=== PATIENT | female | born 1955 | race Caucasian/White ===

== ENCOUNTER 2018-09-15 08:16 | Emergency (ER) | payer OTHER, MEDICAID ==
[~2018-09-15] VITALS: Ht 170.2 cm; Wt 60.3 kg
[2018-09-15 09:20] LABS: BASOPHIL % 0.8 % (0-2); PLATELET COUNT 218 x10^3mcL (130-400)
[2018-09-15 09:22] LABS: CALCIUM 8.6 mg/dL (8.5-10.1); CARBON DIOXIDE 20.1 mmol/L (21-32); CREATININE SERUM 1.7 mg/dL (0.6-1.0)
[2018-09-15 09:33] LABS: BILIRUBIN TOTAL 0.2 mg/dL (0.20-1.00); MAGNESIUM 1.2 mg/dL (1.8-2.4); T4(THYROXINE) 6.4 ug/dL (4.7-13.3); TOTAL PROTEIN, SERUM 6.8 g/dL (6.4-8.2)
[2018-09-15 09:37] LABS: ALBUMIN 2.9 g/dL (3.4-5.0)
[2018-09-15 09:40] VITALS: BP 138/97
[2018-09-15 09:49] LABS: microscopic required? YES; urine erythrocyte 1+ (NEGATIVE)
[2018-09-15 10:00] LABS: AMPHETAMINE QUAL UR NONE DETECTED (See below)
== END 2018-09-15 09:40 | disposition short-term general hospital (02) ==
LOC: ED 08:16
PROVIDERS: Emergency Medicine
DX: I63.9 Cerebral infarction, unspecified (principal); G81.91 Hemiplegia, unspecified affecting right dominant side; E11.9 Type 2 diabetes mellitus without complications; E78.00 Pure hypercholesterolemia, unspecified; I11.0 Hypertensive heart disease with heart failure; I50.9 Heart failure, unspecified; Z95.810 Presence of automatic (implantable) cardiac defibrillator
CPT/HCPCS: 36415; 82962; 83880; Q0092

== ENCOUNTER 2019-04-16 06:08 | Emergency (ER) | payer OTHER, MEDICAID ==
[~2019-04-16] VITALS: Ht 162.6 cm; Wt 61.2 kg
[2019-04-16 06:21] VITALS: Ht 162.6 cm; Wt 61.2 kg
[2019-04-16 07:30] LABS: BASOPHIL % 0.5 % (0-2); PLATELET COUNT 216 x10^3mcL (130-400); RED CELL DISTRIBUTION WIDTH 13.4 % (11.5-14.5)
[2019-04-16 07:35] LABS: BILIRUBIN TOTAL 0.22 mg/dL (0.20-1.00); CALCIUM 8.2 mg/dL (8.5-10.1); CARBON DIOXIDE 17.6 mmol/L (21-32); CREATININE SERUM 1.9 mg/dL (0.6-1.0); POTASSIUM SERUM 3.5 mmol/L (3.5-5.1); TOTAL PROTEIN, SERUM 7.2 g/dL (6.4-8.2)
[2019-04-16 07:50] LABS: ALBUMIN 3.1 g/dL (3.4-5.0)
[2019-04-16 11:27] VITALS: BP 125/61
== END 2019-04-16 11:27 | disposition home or self-care (01) ==
LOC: ED 06:08
PROVIDERS: Emergency Medicine
DX: E11.649 Type 2 diabetes mellitus with hypoglycemia without coma (principal); I11.0 Hypertensive heart disease with heart failure; I50.9 Heart failure, unspecified
CPT/HCPCS: 82962; J3490

== ENCOUNTER 2019-08-01 18:47 | Inpatient (IN) | payer OTHER ==
[~2019-08-01] VITALS: Ht 167.6 cm; Wt 56.2 kg
[2019-08-01 18:49] VITALS: Ht 167.6 cm; Wt 56.2 kg
--- NOTE | 2019-08-01 19:03 | NUR ---
PT C/P PACEMAKER BEEPING SINCE THURSDAY WITH AN EPISODE OF SOB LAST NIGHT, PT HAD INITIALLY DENIED PAIN BUT THEN STATED I FEEL PAIN IN THE MIDDLE OF MY CHEST. EKG DONE IN TRIAGE, X-RAY ORDERED PER DR RAE. PT TO ED LOBBY TO AWAIT ROOM. FAMILY AT HER SIDE. NO ACUTE DISTRESS NOTED.
--- NOTE | 2019-08-01 19:52 | NUR ---
PT CAME TO ED STS THAT SHE THINKS THERE IS A PROBLEM W/HER PACE MAKER. PT STS SHE THINKS THAT IT IS TELLING HER THAT THE BATTERY IS LOW. PT STS THE PACE MAKER IS BEEPING. PT STS SHE MOVED HERE A YEAR AGO, AND SHE IS HAVING TROUBLE W/HER INSURANCE. PT STS THE PACE MAKER HAS "BEEPED" SINCE THURSDAY. PT STS SHE HAS NEVER HEARD THIS BEFORE. NO S/S OF DISTRESS. RESP E/U. PT STS SHE IS CURRENTLY IN NO PAIN. AWAITING MSE. WILL CONTINUE TO MONITOR.
[2019-08-01 20:50] LABS: BASOPHIL % 0.8 % (0-2); PLATELET COUNT 156 x10^3mcL (130-400); RED CELL DISTRIBUTION WIDTH 13.8 % (11.5-14.5)
[2019-08-01 20:58] LABS: CALCIUM 6.8 mg/dL (8.5-10.1); CARBON DIOXIDE 16.3 mmol/L (21-32); CREATININE SERUM 3.3 mg/dL (0.6-1.0); POTASSIUM SERUM 3.5 mmol/L (3.5-5.1)
[2019-08-01 21:03] LABS: BILIRUBIN TOTAL 0.09 mg/dL (0.20-1.00); TOTAL PROTEIN, SERUM 6.3 g/dL (6.4-8.2)
[2019-08-01 21:04] LABS: ALBUMIN 2.5 g/dL (3.4-5.0)
--- NOTE | 2019-08-01 21:18 | NUR ---
PT LAYING ON GURNEY IN POSITION OF COMFORT. WATCHING TV. NO S/S OF DISTRESS RESP E/U. WILL CONTINUE TO MONITOR.
--- NOTE | 2019-08-01 21:32 | NUR ---
DR. ONEILL AT BEDSIDE DISCUSSING POC
--- NOTE | 2019-08-01 22:28 | NUR ---
ATTEMPTED TO OBTAIN MEDICATION LIST. PT STS THAT HER DAUGHTER HAS THE LIST. WILL PROVIDE TO UP STAIRS NURSE WHEN ADMITTED.
--- NOTE | 2019-08-01 23:08 | NUR ---
REPORT GIVEN TO ALEX CAAL TO ASSUME CARE OF PT
--- NOTE | 2019-08-01 23:15 | NUR ---
PT TRANSFERRED TO TELE FLOOR ACCOMPANIED BY NURSE AND EMT. NO S/S OF DISTRESS.R RESP E/U. IV SITE PATENT. NO S/S OF INFILTRATION.
[2019-08-01 23:30] LABS: PHOSPHOROUS 5.9 mg/dL (2.5-4.9)
[2019-08-01 23:32] LABS: CHOLESTEROL/HDL RATIO 2.3
[2019-08-01 23:33] LABS: MAGNESIUM 0.8 mg/dL (1.8-2.4)
[2019-08-01 23:35] VITALS: BP 141/78
--- NOTE | 2019-08-01 23:49 | NUR ---
RECEIVED PT FROM ER, PT ADMIT FOR ANEMIA, RENAL FAILURE, PT IS A/O X4, VERBAL RESPONSIVE. LUNG SOND CLEAR BILATERAL, NO COUGH, NO SOB. PT IS ON TELE 9, PACED. PT C/O BEEPING SOUND FROM PACEMAKER. WAS C/O PALPITATION. BOWEL SOUND PRESENT ALL 4 QUADRANTS, NO DISTENTION, NO TENDER. PEDAL PULSE PRESENT BOTH FEET, NO EDEMA, IV AT RIGHT AC, NO LEAKING, NO INFILTRATION. ALL ADLS ASSIST, ALL NEED MET, CALL LIGHT IN REACH, WILL CONTINUE TO MONITOR.
--- NOTE | 2019-08-01 23:58 | NUR ---
PT AWAKE IN BED. DENIES PAIN AND DISCOMFORT THUS FAR. IV NOTED ON THE RAC. MADE PT COMFORTABLE. PLACED CALL LIGHT WITH IN REACH. WILL CONTINUE TO MONITOR.
[2019-08-02] VITALS (7 sets, daily range): BP systolic 117–146; BP diastolic 60–83
[2019-08-02 00:15] LABS: microscopic required? YES; urine erythrocyte NEGATIVE (NEGATIVE)
[2019-08-02 06:27] LABS: BASOPHIL % 0.7 % (0-2); PLATELET COUNT 149 x10^3mcL (130-400)
--- NOTE | 2019-08-02 06:31 | NUR ---
PT QUIET AND RESTING. NO C/O BEEPING SOUND FROM THE PACE MAKER THUS FAR. IV INTACT AND INFUSING ORDERED. MADE PT COMFORTABLE. WILL ENDORSE TO THE AM NURSE ACCORDINGLY.
[2019-08-02 06:43] LABS: CARBON DIOXIDE 14.5 mmol/L (21-32); CREATININE SERUM 3.1 mg/dL (0.6-1.0); MAGNESIUM 1.7 mg/dL (1.8-2.4); POTASSIUM SERUM 3.4 mmol/L (3.5-5.1)
[2019-08-02 06:50] LABS: T3 TOTAL 0.66 ng/mL
[2019-08-02 07:10] LABS: FREE T4 0.73 ng/dL (0.76-1.46); FREE THYROXINE INDEX 1.7 ug/dL (1.4-4.5); T4(THYROXINE) 4.8 ug/dL (4.7-13.3)
--- NOTE | 2019-08-02 07:30 | NUR ---
RECEIVED PT IN BED A/A/OX4 FORGETFUL AT TIMES. DENIES RESENDIZ. RESP EVEN AND UNLABORED WITH CLEAR BS BILAT. DENIES ANY SOB/CP/PRESSURE. 100% PACED ON TELE. PT WITH PACEMAKER TO LT SIDE OF THE CHEST. PT REPROTED HEARING BEEPING FROM DEVICES ONCE IN A WHILE. ATTENDING AWARE. PENDING CARDIOLOGY EVAL. NO EDEMA NOTED. IVF TO RAC NS AT 70ML/HR. ABD SOFT, NONTENDER WITH ACTIVE BS X4. VOIDING FREELY. NOTED WITH BLANCHABLE REDNESS TO SACRUM MEASURING 3CM X 2CM. WITH DRY SCAB PRESENT. PT REPORTED SHE CHANGED INCONTINENCE CARE SUPPLIES AND DEVELOPED WOUND. CALL LIGHT IN REACH NEEDS ATTENDED TO.
--- NOTE | 2019-08-02 10:10 | NUR ---
RECEIVED A CALL BACK FROM [employer] REP F/U ON REQUEST FOR PACEMAKER INTERROGATION. SPOKE WITH CYNTHIA. MADE AWARE THAT HE HAD SPOKE WITH ED DOC ALREADY YESTERDAY AND NOTIFIED THEM THAT DEVICE WILL ALARM ABOUT EVERY 6 HRS IF BATTERY IS LOW OR DEVICE NEEDS TO BE CHANGED. STATED THAT IT WAS ALMOST 10YRS AND IT WILL NEED MAINTANANCE PT TO F/U WITH WINDING OPERATOR. INQUIRED IF CARDIOLOGY CONSULT WAS PRESENT, MADE AWARE NONE AT THIS TIME. STATED THAT PT HAS TO F/U WITH THEIR WINDING OPERATOR. WILL NOTIFY ATTENDING.
--- NOTE | 2019-08-02 10:36 | NUR ---
DR. CEDILLO AND MEDICAL TEAM AT BEDSIDE FOR AM ROUNDS. MADE AWARE THAT BIRD MARIE FROM [employer] PAC[facility] WILL ALARM IF BATTERY OF PACER NEEDS TO BE REPLACED AND PT SHOULD F/U WITH ENERGY MANAGER. CYNTHIA HAD STATED THAT HE HAD ALREADY SPOKEN WITH ED DOCTOR REGARDING THEIR RECOMENDATIONS. DR. CEDILLO STATED THEY WOULD CARDIOLOGY F/U WITH PT WHILE INPATIENT. WILL CONT TO MONITOR.
--- NOTE | 2019-08-02 11:13 | NUR ---
SPOKE WITH PT'S DAUGHTER MARY ELLEN REGARDING REQUEST FOR HOME MEDS, DAUGHTER STATED SHE HAD SHOWNED THEM IN ED BUIT SHE WILKL BRING THEM IN LATER TODAY SINCE SHE WAS AT WORK AT THIS TIME. PT MADE AWARE WILL CONT TO MONITOR.
[2019-08-02] MEDS ORDERED: CARVEDILOL12.5 M1 PO (14:01)
[2019-08-02] MEDS ORDERED: CLOPIDOGREL75 M1 PO (14:01)
[2019-08-02] MEDS ORDERED: NEXIUM40 MG PO (14:02)
[2019-08-02] MEDS ORDERED: NEU300 PO ×2 (14:04→14:05)
[2019-08-02] MEDS ORDERED: GLIPIZIDE10 M2 PO (14:07)
[2019-08-02] MEDS ORDERED: HYDROCHLOROTHIA25 MG PO ×2 (14:07→14:08)
[2019-08-02] MEDS ORDERED: JANUVIA100 M1 PO (14:08)
[2019-08-02] MEDS ORDERED: COZAAR50 M1 PO (14:09)
[2019-08-02] MEDS ORDERED: MAGNESIUM OXID400 MG PO (14:10)
[2019-08-02] MEDS ORDERED: ZOLOFT50 MG PO (14:11)
[2019-08-02] MEDS ORDERED: LYRICA50 M1 PO (14:11)
[2019-08-02] MEDS ORDERED: PHARMASSURE V500 MCG PO (14:13)
[2019-08-02] MEDS ORDERED: VITAMIN D32000 I2 PO (14:14)
[2019-08-02] MEDS ORDERED: MIRTAZAPINE15 M2 PO (14:18)
[2019-08-02] MEDS ORDERED: LIPI20 PO (14:18)
--- NOTE | 2019-08-02 14:34 | NUR ---
PT DAUGHTER AT BEDSIDE. UPDATED ON CONDITION, DAUGHTER PROVIDED MEDICATION LIST AND UPLOADED TO MED REC. DR. MILLAN PAGED AWAITING CALL BACK TO NOTIFY OF MEDICATION LIST READY FOR EVAL. AWAITING CALL BACK.
--- NOTE | 2019-08-02 16:30 | NUR ---
PT RESTING AT THIS TIME. DENIES ANY DISCOMFORT. CALL LIGHT IN REACH NEEDS ATTENDED TO.
[2019-08-02] MEDS ORDERED: LANTUS SOLOS100 U/M1 SQ (17:47)
--- NOTE | 2019-08-02 18:10 | NUR ---
PT RESTING AT THIS TIME. DENIES ANY DISCOMFORT. FAMILY AT BEDSIDE. ASSISTED WITH AMBULATION TO BR TOLERATED WELL. PENDING CARDIOLOGY EVAL. DENIES ANY EPISODES OF CP/PALPITAIONS OR OTHER CHEST DISCOMFORT. CALL LIGHT IN REACH NEEDS ATTENDED TO.
--- NOTE | 2019-08-02 20:00 | NUR ---
PT A/A/O X4. DENIES DIZZINESS AND HEADACHE. BREATH SOUNDS CLEAR. BREATHING EVEN AND UNLABORED ON ROOM AIR. DENIES CHEST PAIN AND PRESSURE. PACER CAN BE PALPITATED ON THE LEFT SIDE OF THE CHEST NEAR AXILLA. BOWEL SOUNDS ACTIVE. NO C/O N/V AND ABD PAIN. ERYTHEMA NOTED ON COCCYX AREA WITH DRY SCAB. IV INTACT ON THE RAC INFUSING WITH NS AT 70 ML/HR. MADE PT COMFORTABLE. PLACED CALL LIGHT WITH IN REACH. WILL CONTINUE TO MONITOR.
--- NOTE | 2019-08-03 00:57 | NUR ---
PT RESTING WITH EYES CLOSED. NO DISTRESS AND DISCOMFORT NOTED. WILL CONTINUE TO MONITOR.
[2019-08-03 05:35] VITALS: BP 136/56
[2019-08-03 06:28] LABS: BASOPHIL % 0.8 % (0-2); PLATELET COUNT 141 x10^3mcL (130-400); RED CELL DISTRIBUTION WIDTH 13.6 % (11.5-14.5)
[2019-08-03 06:34] LABS: CALCIUM 7.6 mg/dL (8.5-10.1); CARBON DIOXIDE 15.1 mmol/L (21-32); CREATININE SERUM 2.4 mg/dL (0.6-1.0); MAGNESIUM 1.3 mg/dL (1.8-2.4); PHOSPHOROUS 5.4 mg/dL (2.5-4.9); POTASSIUM SERUM 3.7 mmol/L (3.5-5.1)
--- NOTE | 2019-08-03 06:53 | NUR ---
PT QUIET AND RESTING. DENIES HEARING BEEPING FROM PACE MAKER AND PALPITATION THUS FAR. IV INTACT AND INFUSING ORDERED. MADE PT COMFORTABLE. WILL ENDORSE TO THE AM NURSE ACCORDINGLY.
--- NOTE | 2019-08-03 07:20 | NUR ---
SEEN IN BED AAOX4. NO RESP DISTRESS NOTED. DENIES CHEST PAIN OR CHEST PRESSURE. PACED. STATED STILL HEARING BEEPING SOUND FROM PACEMAKER. PER NIGHT RN REPORT STATED THAT [employer] WAS ALREADY NOTIFIED. GEN BODY WEAKNESS. BRP WITH ASSISTANCE. IVF NS TO RAC INFUSING WELL AT 50ML/HR. CALL LIGHT PLACED WITHIN EASY REACH. SIDERAILS UP X2.
[2019-08-03 07:58] VITALS: BP 115/53
--- NOTE | 2019-08-03 09:30 | NUR ---
IV TO RAC LEAKING, NO ERYTHEMA OR SWELLING, IV CATHETER REMOVED WITH CATHETER INTACT, DRSG APPLIED. NEW IV CATH#22 INSERTED TO RIGHT FOREARM WITH GOOD BLD RETURNED AND FLUSHED WELL. ROCEPHIN IVPB INFUSING AT THIS TIME.
[2019-08-03 12:03] VITALS: BP 136/65
--- NOTE | 2019-08-03 13:21 | NUR ---
SEEN BY DOCTOR MCKEE. NOTED ORDER FOR PACEMAKER INTERROGATION FROM [employer].
--- NOTE | 2019-08-03 15:44 | NUR ---
CALLED [employer] (TEL#[phone]), SPOKE TO LILLIE, STATED THAT SOMEBODY WILL CONTACT BACK TO NURSE STATION.
--- NOTE | 2019-08-03 15:51 | NUR ---
SPOKE TO CYNTHIA FROM [employer] STATED THAT HE WILL BE HERE TOMORROW.
[2019-08-03 16:24] VITALS: BP 121/55
[2019-08-03 16:27] VITALS: BP 136/67
--- NOTE | 2019-08-03 18:13 | NUR ---
DOCTOR SAMEER MADE AWARE OF [facility] RESULT(GRAM NEGATIVE BACILLI).
--- NOTE | 2019-08-03 18:14 | NUR ---
NO ANY DISTRESS THROUGHOUT SHIFT. VSS. DENIES CHEST PAIN. STATED VOIDS FREELY. BRP WITH ASSISTANCE. ALL SCHEDULED MEDS GIVEN. IVF NS TO RFA INFUSING WELL AT 70ML/HR.
--- NOTE | 2019-08-03 19:10 | NUR ---
RECEIVED REPORT FROM JEIMY JOHNSON. PT IS AAOX4 AND DENIES HEADACHE OR DIZZINESS AT THIS TIME. PT IS ON TELE #9, 100% PACED WITH HR 77. PT HAS PACEMAKER TO THE LEFT CHEST AREA TOWARDS AXILLA. PT DENIES CHEST PAIN OR PRESSURE AT THIS TIME. PT PULSES ARE PALPABLE AND CAP REFILL <3 SEC. PT LUNG SOUNDS ARE CTA ON RA. PT BREATHING EVEN AND UNLABORED. PT DENIES SOB OR RESPIRATORY DISTRESS AT THIS TIME. PT ABD SOFT AND NONDISTENDED. PT BOWEL SOUNDS ACTIVE X4. PT DENIES N/V/D AT THIS TIME. PT VOIDS FREELY AND IS BRP WITH ASSIST. PT HAS GENERALIZED WEAKNESS AND USES WALKER. PT HAS BLANCHABLE REDNESS TO COCCYX AREA WITH OPTIFOAM IN PLACE, CDI. PT IV IS PATENT, INTACT, AND WNL. CALL LIGHT WITHIN REACH. BED IN LOWEST POSITION. SIDE RAILS X2 UP. WILL CONTINUE TO MONITOR.
[2019-08-03 19:51] VITALS: BP 141/73
--- NOTE | 2019-08-03 22:00 | NUR ---
PT IS SLEEPING. PT BREATHING EVEN AND UNLABORED ON RA. NO ACUTE DISTRESS NOTED. CALL LIGHT WITHIN REACH. BED IN LOWEST POSITION. SIDE RAILS X2 UP. WILL CONTINUE TO MONITOR.
--- NOTE | 2019-08-04 02:18 | NUR ---
PT SLEEPING. BREATHING EVEN AND UNLABORED. NO ACUTE DISTRESS NOTED. CALL LIGHT WITHIN REACH. BED IN LOWEST POSITION. SIDE RAILS X2 UP. WILL CONTINUE TO MONITOR.
--- NOTE | 2019-08-04 03:00 | NUR ---
PT SLEEPING. PT BREATHING EVEN AND UNLABORED. NO ACUTE DISTRESS NOTED. CALL LIGHT WITHIN REACH. BED IN LOWEST POSITION. SIDE RAILS X2 UP. WILL CONTINUE TO MONITOR.
--- NOTE | 2019-08-04 04:40 | NUR ---
PT SLEPT THROUGHOUT THE NIGHT. PT COMPLIED WITH NURSING CARE THROUGHOUT THE SHIFT. NO ACUTE DISTRESS NOTED DURING THE SHIFT. ALL QUESTIONS AND CONCERNS ADDRESSED. SAFETY AND COMFORT MEASURES WERE MAINTAINED DURING THE SHIFT. IV INTACT AND IVF INFUSING WELL. NO S/S OF INFILTRATION. CALL LIGHT WITHIN REACH. BED IN LOWEST POSITION. SIDE RAILS X2 UP. WILL CONTINUE TO MONITOR. WILL ENDORSE CARE TO DAY SHIFT NURSE.
[2019-08-04 05:07] VITALS: BP 147/77
[2019-08-04 06:21] LABS: BASOPHIL % 0.9 % (0-2); PLATELET COUNT 159 x10^3mcL (130-400); RED CELL DISTRIBUTION WIDTH 14.1 % (11.5-14.5)
[2019-08-04 06:32] LABS: IRON 75 ug/dL (50-170)
[2019-08-04 06:33] LABS: TOTAL IRON BINDING CAPACITY 124 ug/dL (250-450)
[2019-08-04 06:38] LABS: CALCIUM 7.9 mg/dL (8.5-10.1); CARBON DIOXIDE 17.7 mmol/L (21-32); CREATININE SERUM 2.1 mg/dL (0.6-1.0); MAGNESIUM 1.4 mg/dL (1.8-2.4); PHOSPHOROUS 5.4 mg/dL (2.5-4.9); POTASSIUM SERUM 3.8 mmol/L (3.5-5.1)
--- NOTE | 2019-08-04 07:30 | NUR ---
RECEIVED PATIENT IN BED, AWAKE ALERT AND ORIENTED. DENIES ANY CHEST PAIN OR PRESSURE. TELE 9 PACED. RESP EVEN AND UNLABORED, LUNGS CLEAR ON ROOM AIR. IVF INFUSING WELL TO RIGHT A/C. AMBULATES WITH WALKER, GENERALIZED WEAKNESS NOTED. NO ACUTE DISTRESS NOTED. WILL CONTINUE TO MONITOR.
[2019-08-04 07:49] VITALS: BP 129/69
--- NOTE | 2019-08-04 10:04 | NUR ---
[employer] REP AT BEDSIDE TO INTERROGATE PACEMAKER. NO ACUTE DISTRESS NOTED.
[2019-08-04 11:32] VITALS: BP 131/70
[2019-08-04 13:17] VITALS: BP 131/70
--- NOTE | 2019-08-04 14:23 | NUR ---
1. Recommend continuing CCHO diet at this time. Patient to be D/C today.
--- NOTE | 2019-08-04 14:23 | NUR ---
Initial Nutrition Assessment: 234T/B ABRIL AGUSTIN IA HR Dx: Anemia, renal failure PMHx: DM, HTN, pacemaker, CHF, TIA PSHx: Other (Pacemaker), Hysterectomy Labs: NA 146H, BUN 29H, CREAT 2.1H, ALB 2.5L, P 5.4H, A1C 8.6H Meds: Colace, coreg, cozaar, D 50%, Humulin, lipitor, Remeron, vitamin B 12, Vitamin D Diet: [facility] PO intake since admission: (08/03) dinner 90%, lunch, breakfast 100%, (08/02) dinner 100%, lunch 70%, breakfast 85% Ht: 167.64 cm (66") Wt: 56.2 kg (124#) BMI: 20 kg/m2 Bed scale: 124# IBW: 130# (59 kg) %IBW: 95 UBW: unable to access Age: 64/F Food Allergies: NKFA Skin: blanchable redness to coccyx Tuan: 21 Edema: none GI: Last BM: 07/31 Per H&P, Pt is a 64 year old female with PMH of DM, HTN, pacemaker brought to the ED by her daughter for evaluation of pacemaker malfunction for [address] Note (08/04): Patient was sleeping. Per RN Wil, pt has good PO and does not have N/V/D/C at this time. Patient is being D/C today. FNS received consult for 'malnutrition' on 08/02. Problem with: N/V/D/C: none per RN Problems with: Chewing: Swallowing: none per RN Current appetite: good per RN Recent wt change: unable to access %wt change: n/a Vitamin/Supplement use: unable to access Special diet at home: unable to access Physical activity: unable to access Nutrition education given: not possible at this time Food-drug interactions: none Education given: n/a Estimated Nutritional Needs Based on current body weight (56.2 kg) Energy: 1269-9179 kcal/day (25-30 kcal/kg for maintenance) Protein: 56-67 g/day (1.0-1.2 g/kg for maintenance) Fluid: 6290-7919 mL/day (1 mL/kcal) Nutrition Diagnosis: 1. Altered nutrition related lab values related to endocrine and renal dysfunction as evidenced by A1C 8.6, CREAT 2.1 Intervention 1. Recommend continuing CCHO diet at this time. Patient to be D/C today. Monitor/Evaluate Goal: PO intake at least 75% of estimated needs Monitor: PO intake, Labs, GI function F/U in 3-5 days as moderate risk 08/07-
--- NOTE | 2019-08-04 15:14 | NUR ---
PATIENT'S PLAN OF CARE WAS DISCUSSED AND REVIEWED WITH CARGO AND RAMP SERVICES MANAGER:GAEL ESCOTO. I HAVE REVIEWED THE DATA COLLECTION BY CARGO AND RAMP SERVICES MANAGER (NAME):GAEL ESCOTO. ENTERED ON (DATE/TIME):08/04/19 I CONCUR WITH THE DATA AND ANY EXCEPTIONS OR COMMENTS ARE LISTED BELOW:
[2019-08-04 15:25] VITALS: BP 128/72
--- NOTE | 2019-08-04 17:10 | NUR ---
PATIENT READY FOR DISCHARGE HOME. HL AND TELE DC'D. DISCHARGE INSTRUCTIONS GIVEN TO PATIENT AND HER DAUGHTER WHO IS AT BEDSIDE. EDUCATION PROVIDED. PERSONAL BELONGINGS LIST SIGNED. CONDITION APPEAR STABLE.
== END 2019-08-04 17:20 | disposition home or self-care (01) | DRG 308 ==
LOC: ED 18:47 → DU 22:32
PROVIDERS: Emergency Medicine; Internal Medicine; ADMIT Internal Medicine
DX: T82.191A Other mechanical complication of cardiac pulse generator (battery), initial encounter (principal); E43 Unspecified severe protein-calorie malnutrition; N39.0 Urinary tract infection, site not specified; I13.0 Hypertensive heart and chronic kidney disease with heart failure and stage 1 through stage 4 chronic kidney disease, or unspecified chronic kidney disease; I50.22 Chronic systolic (congestive) heart failure; N17.9 Acute kidney failure, unspecified; E11.22 Type 2 diabetes mellitus with diabetic chronic kidney disease; E11.65 Type 2 diabetes mellitus with hyperglycemia; E83.42 Hypomagnesemia; N18.3 Chronic kidney disease, stage 3 (moderate); E83.39 Other disorders of phosphorus metabolism; E87.8 Other disorders of electrolyte and fluid balance, not elsewhere classified; D63.1 Anemia in chronic kidney disease; Z91.81 History of falling; Z68.21 Body mass index [BMI] 21.0-21.9, adult; Z87.891 Personal history of nicotine dependence; Z79.84 Long term (current) use of oral hypoglycemic drugs; Z86.73 Personal history of transient ischemic attack (TIA), and cerebral infarction without residual deficits
CPT/HCPCS: 82962; 83880; 84439; 97116-GP; G0378; J0696; J2405; J3475; J7030; J7060; Q0092

== ENCOUNTER 2019-08-15 13:42 | Inpatient (IN) | payer OTHER ==
[~2019-08-15] VITALS: Ht 162.6 cm; Wt 64.6 kg
[~2019-08-15 13:42] MED LIST: CARVEDILOL12.5 M1 PO; CLOPIDOGREL75 M1 PO; COZAAR50 M1 PO; GLIPIZIDE10 M2 PO; HYDROCHLOROTHIA25 MG PO; JANUVIA100 M1 PO; LANTUS SOLOS100 U/M1 SQ; LIPI20 PO; LYRICA50 M1 PO; MAGNESIUM OXID400 MG PO; MIRTAZAPINE15 M2 PO; NEU300 PO; NEXIUM40 MG PO; PHARMASSURE V500 MCG PO; VITAMIN D32000 I2 PO; ZOLOFT50 MG PO
[2019-08-15 13:43] VITALS: Ht 162.6 cm; Wt 64.6 kg
--- NOTE | 2019-08-15 13:50 | NUR ---
PT BROUGHT IN FROM [facility] FOR SLURRED SPEECH BY DTR VIA PRIVATE AUTO. 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 PLACED ON CM WITH PACED RHYTHM, PT REMAINS A/AX4 SPEAKING EVEN LOOKS BETTER AFTER THE AMP OF D50. EKG DONE BY EMT JASON RESULTS READ BY DR DAWN.
--- NOTE | 2019-08-15 13:55 | NUR ---
WARMING BLANKET ON PT DUE TO RECTAL TEMP 96.3. 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 SIDERAILS UP FOR SAFETY C/L IN REACH DTR MARY ELLEN AT HER SIDE.
--- NOTE | 2019-08-15 14:04 | NUR ---
URINE DIP RESULTS REPORTED TO DR DAWN.
--- NOTE | 2019-08-15 14:10 | NUR ---
PROCESS PUMPER FABY AT BEDSIDE COLLECTING BLOOD PER DR DAWN ORDERS, PT TOLERATING WELL
[2019-08-15 14:22] LABS: microscopic required? YES; urine erythrocyte TRACE (NEGATIVE)
--- NOTE | 2019-08-15 14:30 | NUR ---
REPORT RECEVIED FROM MILI JOHNSON. PT IN POSITION OF COMFORT, WITH BLANKET WARMER IN PLACE. PT IS AAAOX4. PT STS THAT SHE DOES NOT REMEMBER WAKING UP THIS MORING BUT SHE DOES REMEMBER TAKING HER INSULIN AND NOT EATING. PT EDUCATED ON PROPER MEDCIATION ADMIN. VSS. RESP E/U. DAUGHTER AT BEDSIDE. WILL CONTINUE TO MONITOR.
[2019-08-15 14:41] LABS: BASOPHIL % 0.3 % (0-2); PLATELET COUNT 226 x10^3mcL (130-400)
--- NOTE | 2019-08-15 14:55 | NUR ---
PT PRVIDED WITH CRACKERS AND JUICE PER DR. DAWN. PT IS AAOX4. PT DENIES ANY COMPALINTS AT THIS TIME. VSS. RESP E/U. WILL CONTINUE TO MONITOR.
[2019-08-15 14:58] LABS: CALCIUM 7.7 mg/dL (8.5-10.1); CARBON DIOXIDE 19.3 mmol/L (21-32); CREATININE SERUM 2.2 mg/dL (0.6-1.0); POTASSIUM SERUM 3.2 mmol/L (3.5-5.1)
[2019-08-15 15:02] LABS: BILIRUBIN TOTAL 0.2 mg/dL (0.20-1.00); PHOSPHOROUS 5.1 mg/dL (2.5-4.9)
--- NOTE | 2019-08-15 15:04 | NUR ---
PUSHED DEXTROSE 50% LT WRIST DUE TO PT BG 56. DR. DAWN MADE AWARE. PT IS AAOX4. VSS. RESP E/U. WILL CONTINUE TO MONITOR.
[2019-08-15 15:18] LABS: ALBUMIN 2.2 g/dL (3.4-5.0)
[2019-08-15 15:20] LABS: MAGNESIUM 0.9 mg/dL (1.8-2.4)
--- NOTE | 2019-08-15 15:43 | NUR ---
PT MEDICATED PER EMAR. DAUGHTER AT BEDSIDE, NAD NOTED, RESPS E/U, ON FULL CM. CALL LIGHT WITHIN REACH. NEO RAILS RAISED FOR SAFETY. LIGHTS IN ROOM DIMMED PER PT REQUEST.
--- NOTE | 2019-08-15 16:48 | NUR ---
PT RESTING WITH VISIBLE CHEST RISE AND FALL. PT IS EASILY AROUSABLE. VSS. RESP E/U. WILL CONTINUE TO MONITOR.
--- NOTE | 2019-08-15 16:52 | NUR ---
CALL DAUGHTER MARY ELLEN: [phone]
--- NOTE | 2019-08-15 18:50 | NUR ---
INCREASED DEXTROSE 10% 100ML/HR, VERBAL ORDER BY DR. DAWN DUE TO BG 45. VSS. RESP E/U. PT IS AAOX4. WILL CONTINUE TO MONITOR. PT GIVEN JUICE,PUDDING AND SANDWICH. PT TOERATING WELL PATENT AIRWAY.
--- NOTE | 2019-08-15 19:26 | NUR ---
REPORT GIVEN TO JOSE JOHNSON TO ASSUME CARE OF PT.
--- NOTE | 2019-08-15 19:30 | NUR ---
PT AWAKE, RESTING IN GURNEY. PT GCS 15, AAOX4. RESP E/U, APPEARS IN NO DISTRESS. DENIES PAIN. AWAITING BED FOR ADMISSION. WILL CONTINUE TO MONITOR.
--- NOTE | 2019-08-15 20:28 | NUR ---
JAQUELINE JOHNSON UNAVAILABLE FOR REPORT AT THIS TIME. STS SHE WILL CALL BACK.
--- NOTE | 2019-08-15 21:10 | NUR ---
RECEIVED PT VIA [facility] FROM ER, ACCOMPANIED BY NURSE. PT AOX4, DENIES RESENDIZ/DIZZINESS. TELE #1, PACED ON DEMAND. PT STATES HAVING A PACEMAKER FOR 9.5 YEARS, DENIES CP. PULSES PALPABLE BILAT, DENIES NUMBNESS IN BUE/LLE, PT REPORTS NUMBNESS IN RLE. RESP EVEN AND UNLABORED ON RA, DENIES SOB. ABD SOFT, ROUND DENIES ABD PAIN. PT REPORTS DECERASED APPETITE, PT DOES NOT HAVE DENTURES WITH HER AT THIS TIME, PT REPORTS HX OF CONSTIPATION, VOIDS FREELY, REPORTS INTERMITTENT HESITASION WHEN TRYING TO URINATE. AMB, PT REPORTS OCCASIONALLY USING A WALKER AT HOME. SKIN INTACT. DENIES PAIN AT THIS TIME. IV SITE TO THE RAC, SALINE LOCKED AT THIS TIME. PT WITH IV TO THE LAC, D10 AT 50ML/HR. NO REDNESS, SWELLING OR PAIN NOTED. ALL COMFORT AND SAFETY MEASURES PROVIDED FOR, CALL LIGHT WITHIN REACH, BED IN LOWEST POSITION, WILL CONTINUE TO MONITOR.
--- NOTE | 2019-08-15 22:30 | NUR ---
CHECKED PT BLOOD SUGAR PER ORDER, FIRST BLOOD SUGAR= 29, RECHECKED BLOOD SUGAR= 32, PUSHED D50% PER ORDER, WILL RECHECK IN 30 MINS, DR. FINN NOTIFED. PER DR FINN, WILL INCREASE PT D10 RATE TO 50ML/HR, WILL WAIT FOR ORDER. PT DENIES FEELING LIGHTHEADED/DIZZINESS. DENIES N/V. PT REMAINS AOX4, DENIES RESENDIZ/DIZZINESS. CALL LIGHT WITHIN REACH, BED IN LOWEST POSITION, WILL CONTINUE TO MONITOR.
[2019-08-15 22:47] VITALS: BP 150/57
--- NOTE | 2019-08-15 23:20 | NUR ---
RECHECKED PT BLOOD SUGAR= 73, PT REPORTS FEELING BETTER. D10% RUNNING AT 50ML/HR. NO REDNESS, SWELLING OR PAIN NOTED. CALL LIGHT WITHIN REACH, BED IN LOWEST POSITION, WILL CONTINUE TO MONITOR.
--- NOTE | 2019-08-16 02:35 | NUR ---
RECHCKED PT BLOOD SUGAR= 18, RECHECKED= 19, PUSHED D50% AGAIN, RESIDENT MADE AWARE. PT SLIGHTLY CONFUSED, ABLE TO REORIENT QUICKLY. WILL WAIT FOR ANY NEW ORDERS, WILL RECHECK BLOOD SUGAR @ 0310. CALL LIGHT WITHIN REACH, BED IN LOWEST POSITION, WILL CONTINUE TO MONITOR.
--- NOTE | 2019-08-16 04:05 | NUR ---
GAVE GLUCAGON 1MG IM FOR RESISTENT HYPOGLYCEMIA AFTER D50% ADMINISTRATION PER DR. FINN ORDER. PT RESTING IN BED, AOX4. DENIES RESENDIZ/DIZZINESS. WILL CONTINUE TO MONITOR.
[2019-08-16 06:18] VITALS: BP 135/77
[2019-08-16 06:57] LABS: BASOPHIL % 0.6 % (0-2); PLATELET COUNT 205 x10^3mcL (130-400); RED CELL DISTRIBUTION WIDTH 13.9 % (11.5-14.5)
[2019-08-16 07:04] LABS: CALCIUM 7.7 mg/dL (8.5-10.1); CARBON DIOXIDE 19.1 mmol/L (21-32); CREATININE SERUM 1.9 mg/dL (0.6-1.0); MAGNESIUM 1.1 mg/dL (1.8-2.4); PHOSPHOROUS 3.7 mg/dL (2.5-4.9); POTASSIUM SERUM 3.3 mmol/L (3.5-5.1)
--- NOTE | 2019-08-16 07:20 | NUR ---
RECEIVED PT FROM AUDITOR SUPERVISOR. PT AWAKE, ALERT A/OX4. PT ON ROOM AIR WITH NO RESP DISTRESS NOTED. IV ACESS LAC, CDI INFUSING D10 AT 75ML/HR. PT HAS IV TO LAC, CDI. PT ON TELE 1, PACED ON DEMAND. DENIES CHEST PAIN. PERIPHERAL PULSES PALPABLE, NO EDEMA NOTED. ACTIVE BS NOTED. PT DENIES ISSUES WITH VOIDING. PT NOTED TO HAVE GENERALIZED WEAKNESS. USES WALKER AT HOME TO AMBULATE. SAFETY MEASURES IN PLACE, BED LOW AND LOCKED. CALL LIGHT WITHIN REACH.
--- NOTE | 2019-08-16 08:45 | NUR ---
PT BLOOD SUGAR 157 AT THIS TIME. DUE MEDICATIONS ADMINISTERED. PT TOLERATED WELL. PT REPORTED HEALED SACRAL WOUND, UPON ASSESSMENT, WOUND NOTED TO BE WITH SCAR, CLOSED AND HEALED, ZGUARD AND OPTIFOAM APPLIED FOR COMFORT AND PROTECTION. PT HAD BOWEL MOVEMENT AT THIS TIME.
--- NOTE | 2019-08-16 08:48 | NUR ---
POTASSIUM 20MEQ ADMINISTERED PO ORDERED FOR K+3.3
[2019-08-16 09:06] VITALS: BP 146/68
--- NOTE | 2019-08-16 09:45 | NUR ---
MAGNESIUM SULFATE 4G IVPB ADMINISTERED AT THIS TIME FOR MAG 1.1
[2019-08-16 11:50] VITALS: BP 117/61
--- NOTE | 2019-08-16 12:23 | NUR ---
PT BLOOD SUGAR 192 AT THIS TIME. PT AWAKE, ALERT WITH NO ACUTE DISTRESS OR DISCOMFORT NOTED. SAFETY MAINTAINED.
--- NOTE | 2019-08-16 14:27 | NUR ---
SPOKE WITH DR MILLAN REGARDING PT BLOOD SUGAR 192. PER . CONTINUE TO MONITOR.
--- NOTE | 2019-08-16 14:56 | NUR ---
BLOOD SUGAR 316, DR MILLAN AWARE. WILL CHANGE TO IV FLUID.
--- NOTE | 2019-08-16 15:49 | NUR ---
NS AT 70ML/HR STARTED AT THIS TIME. D10 DISCONTINUED. PT AWAKE, ALERT WITH NO ACUTE DISTRESS OR DISCOMFORT NOTED. WILL MONITOR.
[2019-08-16 16:30] VITALS: BP 120/69
--- NOTE | 2019-08-16 17:11 | NUR ---
PT BLOOD SUGAR 224 DOWN FROM 316 ONE HOUR AGO WHEN D10 WAS STOPPED. PT WANTS TO WAIT UNTIL NEXT BS CHECK BEFORE TAKING INSULIN. WILL CONTINUE TO MONITOR AND ENDORSE TO [employer]IN WINDING OPERATOR NURSE.
--- NOTE | 2019-08-16 18:54 | NUR ---
PT STABLE AT THIS TIME. ALL NEEDS TENDED TO THROUGHOUT SHIFT. WILL CONTINUE TO MONITOR AND ENDORSE CARE TO YARD CLEANER.
--- NOTE | 2019-08-16 20:00 | NUR ---
PT SEEN, RESTING IN BED, ALERT AND ORIENTED X 4, DENIES HEADACHE OR DIZZINESS, VERY VERBALLY RESPONSIVE, BREATHING EVEN AND UNLABORED, LUNG SOUNDS CLEAR, ON ROOM AIR WITH NO RESP DISTRESS NOTED, ON TELE#1 100% PACED, DENIES CHEST PAIN, PULSES PALPABLE, NO EDEMA NOTED, MILD GENERALIZED WEAKNESS, ABD SOFT AND FLAT WITH ACTIVE BS, NO BM AT THIS TIME, VOIDING FREELY, NO DISTRESS NOTED, WILL KEEP TO MONITOR.
[2019-08-16 20:57] VITALS: BP 121/61
--- NOTE | 2019-08-17 05:38 | NUR ---
PT AWAKE AND RESTING IN BED, SLEPT THROUGHOUT THE NIGHT, MORNING BLLOD SUAGR:87 MG/DL, ORANGE JUICE AND PUDDING GIVEN, IVF INFUSING WELL TO RFA, MINIMAL ASSIST TO RESTROOM, NO DISTRESS NOTED, WILL KEEP TO MONITOR.
[2019-08-17 06:02] VITALS: BP 154/68
[2019-08-17 07:15] LABS: BASOPHIL % 0.5 % (0-2); PLATELET COUNT 252 x10^3mcL (130-400); RED CELL DISTRIBUTION WIDTH 14.1 % (11.5-14.5)
--- NOTE | 2019-08-17 07:20 | NUR ---
SEEN PATIENT AOX4, NOT IN DISTRESS, TELE 1 PACED RHYTHM, BBB, PALPABLE PULSES, NO EDEMA, CTA ON BLF, ON RA, NORMOACTIVE BS, LAST BM 08/16/19, VOID WITH NO DYSURIA, GENERALIZED WEAKNESS, LIMITED ROM, SKIN DRY AND INTACT, IV INFUSING WELL AT 70CC/HR TO RFA. NO PAIN AT THIS TIME, CALL LIGHT WITHIN REACH. BED AT LOWEST POSITION.
--- NOTE | 2019-08-17 07:23 | NUR ---
BEDSIDE HANDOFF REPORT GIVEN TO PADMINI, ALL QUESTIONS ANSWERED AND CONCERNS ADDRESSED.
[2019-08-17 07:25] LABS: CALCIUM 8.6 mg/dL (8.5-10.1); CARBON DIOXIDE 20.5 mmol/L (21-32); CREATININE SERUM 2.2 mg/dL (0.6-1.0); MAGNESIUM 1.8 mg/dL (1.8-2.4); POTASSIUM SERUM 4.5 mmol/L (3.5-5.1)
[2019-08-17 08:33] VITALS: BP 137/77
--- NOTE | 2019-08-17 09:00 | NUR ---
SEEN AOX4, NOT IN DISTRESS, NO SIGNS AND SYMPTOMS OF HYPOGLYCEMIA, PO MEDICATIONS GIVEN. IV INTACT AND PATENT , NO REDNESS OR INFILTRATION. CALL LIGHT WITHIN REACH. BED AT LOWEST POSITION.
--- NOTE | 2019-08-17 11:30 | NUR ---
SEEN AOX4, NOT IN DISTRESS,NO SIGNS OF HYPOGLYCEMIA , NO SUBJECTIVE COMPLAINTS, ACCUCHECK DONE WITH CBG 141. NO INSULIN REQUIRED.
[2019-08-17 13:14] VITALS: BP 135/69
--- NOTE | 2019-08-17 16:17 | NUR ---
SEEN AOX4, NOT IN DISTRESS. ACCUCHECK DONE WITH CBG 193. INSULIN REGULAR 2 UNITS GIVEN SQ. BP 131/72. CARVEDILOL GIVEN.
--- NOTE | 2019-08-17 17:26 | NUR ---
SEEN AOX4, NOT IN DISTRESS, PATIENT VERBALIZED FEELING ENERGIZED, NO WEAKNESS, NO DYSPNEA, NO SIGNS OF HYPOGLYCEMIA, LAST BM 08/17/19, IV INTACT AND PATENT, NO REDNESS OR INFILTRATION. CALL LIGHT WITHIN REACH. BED AT LOWEST POSITION.
[2019-08-17 17:34] VITALS: BP 132/75
[2019-08-17 19:15] VITALS: BP 153/78
--- NOTE | 2019-08-17 19:15 | NUR ---
RECEIVED PT AWAKE ALERT AND VERBALLY RESPONSIVE.DENIES HEADACHE OR DIZZINESS.DENIES CHESTPAIN AT THIS TIME.BP 153/78 MMHG,HR 86.ASSISTED TO BR AND VOIDED WELL.OPTIFOAM TO SACRAL AREA.BEDALARM ON AT THIS TIME.ENCOURAGED TO CALL FOR ASSISTANCE AT ALL TIMES.
--- NOTE | 2019-08-18 04:42 | NUR ---
PT SLEPT WELL ALL NIGHT.NO S/S OF HYPO/HYPERGLYCEMIA NOTED.ASSISTED TO BR NEEDED.NO SLURRED SPEECH NOTED.DENIES CHESTPAIN.ALL NEEDS MET.WILL CONTINUE TO MONITOR.
--- NOTE | 2019-08-18 05:39 | NUR ---
BS THIS AM @ 89MG/DL.NO S/S OF HYPO/HYPERGLYCEMIA NOTED.WILL CONTINUE TO MONITOR.
[2019-08-18 05:41] VITALS: BP 150/76
[2019-08-18 07:02] LABS: CALCIUM 8.6 mg/dL (8.5-10.1); CARBON DIOXIDE 19.3 mmol/L (21-32); CREATININE SERUM 1.8 mg/dL (0.6-1.0); POTASSIUM SERUM 4.9 mmol/L (3.5-5.1)
[2019-08-18 07:17] LABS: BASOPHIL % 0.6 % (0-2); PLATELET COUNT 241 x10^3mcL (130-400); RED CELL DISTRIBUTION WIDTH 13.7 % (11.5-14.5)
--- NOTE | 2019-08-18 07:46 | NUR ---
SEEN AOX4, NOT IN DISTRESS, NO SUBJECTIVE COMPLAINTS OF PAIN, TELE 1 , PACED, PALPABLE PULSES, NO EDEMA, CTA ON BLF, NO DYSPNEA, + BS, VOIDS WITH NO DYSURIA, NO WEAKNESS, SKIN INTACT, IV INFUSING WELL AT 70CC/HR TO RFA, CALL LIGHT WITHIN REACH. BED AT LOWEST POSITION.
[2019-08-18 08:32] VITALS: BP 156/77
--- NOTE | 2019-08-18 10:00 | NUR ---
TALKED TO CASE MANAGEMENT TYRONE, MADE AWARE THAT [employer] CALLED DESTINATION SPECIALIST NURSE REGARDING PATIENT'S HOSPITAL STAY. RECEIVED REPORT FROM DESTINATION SPECIALIST NURSE YURI . PER [employer], PATIENT IS STAYING IN THE HOSPITAL FOR TOO LONG AND JUST FOR HYPOGLYCEMIA. PER DESTINATION SPECIALIST NURSE, I AM UNABLE TO RELAY THIS INFORMATION, PLS TALK WITH CASE MANAGEMENT ABOUT THIS.
--- NOTE | 2019-08-18 11:03 | NUR ---
SEEN AOX4, NOT IN DISTRESS, NO SUBJECTIVE COMPLAINTS, ACCUCHECK DONE WITH CBG 138. NO INSULIN REQUIRED.
[2019-08-18 12:54] VITALS: BP 130/78
[2019-08-18 13:21] VITALS: BP 144/69
--- NOTE | 2019-08-18 15:06 | NUR ---
1. [facility]. 2. DM diet education provided.
--- NOTE | 2019-08-18 15:06 | NUR ---
Initial Nutrition Assessment: 210T/B RANDY AGUSTIN IA HR Dx: Persistent hypoglycemia PMHx: DM, HTN, pacemaker, TIA PSHx: Pacemaker placement (9 yrs ago), hysterectomy Labs: BUN 24H, CREAT 1.8H, ALB 2.2L, A1C 7.3H, WBC 12.1H Meds: Colace, D 50%, Humulin, Lipitor, norco, Pepcid, Remeron, vitamin B12, vitamin D, Zofran, zoloft Diet: CCHO PO intake since admission: (08/17) dinner 80%, lunch 60%, (08/16) all meals 100% Ht: 162.56 cm (64") Wt: 64.5 kg (142#) BMI: 24.4 kg/m2 Bed scale: 142# IBW:120# (55 kg) %IBW: 118 UBW: 142# Age: 64/F Food Allergies: NKFA Skin: intact, optifoam to sacro-coccyx Tuan: 19 Edema: none GI: Last BM: 08/17 Per H&P, Pt is a 64-year-old female with PMH of DM, HTN, pacemaker brought to the ED by her daughter with c/o altered level of consciousness. RD Note (08/18): Patient was alert and oriented and said that she has good PO and denies any N/V/D/C at this time. Problem with: N/V/D/C: none Problems with: Chewing: Swallowing: none Current appetite: good Recent wt change: none %wt change: n/a Vitamin/Supplement use: none Special diet at home: Regular, avoids sweets Physical activity: sedentary Nutrition education given: DM diet education was provided using [facility] handout on 'Type 2 Diabetes Nutrition Therapy'. Concepts like high fiber foods and portion control were discussed. Patient verbalized understanding and did not have any questions at this time. Food-drug interactions: none Education given: n/a Estimated Nutritional Needs Based on current body weight (64.5 kg) Energy: 7009-3529 kcal/day (25-30 kcal/kg for maintenance) Protein: 64.5-77 g/day (1.0-1.2 g/kg for maintenance) Fluid: 1416-8403 mL/day (1 mL/kcal) Nutrition Diagnosis: 1. Food and nutrition related knowledge deficit related to no prior education as evidenced by A1C 7.3 Intervention 1. Recommend continuing CCHO diet. 2. DM diet education provided. Monitor/Evaluate Goal: PO intake at least 75% of estimated needs Monitor: PO intake, Labs, GI function F/U in 7 days as low risk 08/25
--- NOTE | 2019-08-18 15:53 | NUR ---
AMIRA SPOKE WITH PT FOR PT EVALUATION. PT ASSESSED PATIENT'S FUNCTIONAL MOBILITY, PER PT ASSESSMENT, PATIENT FULL WEIGHT BEARING 5 TIMES A WEEK . TO BE SEEN FOR FOLLOW UP SESSIONS , HHPT FOR SAFETY EVALUATION AND TREATMENT
--- NOTE | 2019-08-18 15:56 | NUR ---
CASE MANAGEMENT CALLED TO FOLLOW UP ON HOME HEALTH ORDERS. PER CASE MANAGEMENT, PATIENT IS OK TO DISCHARGE.
--- NOTE | 2019-08-18 16:42 | NUR ---
PATIENT IV DISCONTINUED. NO REDNESS OR INFILTRATION. TELEMONITOR REMOVED AND GIVEN TO COUNTER CONTROL OPERATOR . DISCHARGED PER WHEELCHAIR. ACCOMPANIED BY DAUGHTER AND FREDDY HESTER.
== END 2019-08-18 16:30 | disposition home health service (06) | DRG 917 ==
LOC: ED 13:42 → DU 19:05
PROVIDERS: Emergency Medicine; Family Medicine; ADMIT Internal Medicine
DX: T38.3X1A Poisoning by insulin and oral hypoglycemic [antidiabetic] drugs, accidental (unintentional), initial encounter (principal); G92 Toxic encephalopathy; E43 Unspecified severe protein-calorie malnutrition; M62.82 Rhabdomyolysis; E87.6 Hypokalemia; I12.9 Hypertensive chronic kidney disease with stage 1 through stage 4 chronic kidney disease, or unspecified chronic kidney disease; E87.8 Other disorders of electrolyte and fluid balance, not elsewhere classified; E10.22 Type 1 diabetes mellitus with diabetic chronic kidney disease; E10.65 Type 1 diabetes mellitus with hyperglycemia; E10.649 Type 1 diabetes mellitus with hypoglycemia without coma; N18.9 Chronic kidney disease, unspecified; D63.1 Anemia in chronic kidney disease; E83.39 Other disorders of phosphorus metabolism; E83.42 Hypomagnesemia; Z68.24 Body mass index [BMI] 24.0-24.9, adult; Z95.0 Presence of cardiac pacemaker; Z79.4 Long term (current) use of insulin; Z87.891 Personal history of nicotine dependence; Z86.73 Personal history of transient ischemic attack (TIA), and cerebral infarction without residual deficits; Y92.018 Other place in single-family (private) house as the place of occurrence of the external cause
CPT/HCPCS: 82962; 90732; 97116-GP; B4164; G0378; J1610; J3475; J3490; J7030; J7050; Q0092

== ENCOUNTER 2019-09-05 08:35 | Inpatient (IN) | payer OTHER, MEDICAID ==
[~2019-09-05] VITALS: Ht 167.6 cm; Wt 62.6 kg
[2019-09-05 08:39] VITALS: Ht 167.6 cm; Wt 62.6 kg
[2019-09-05 09:55] LABS: BASOPHIL % 0.6 % (0-2); PLATELET COUNT 236 x10^3mcL (130-400)
[2019-09-05 09:57] LABS: RED CELL DISTRIBUTION WIDTH 14.6 % (11.5-14.5)
[2019-09-05 09:59] LABS: CALCIUM 7.2 mg/dL (8.5-10.1); CARBON DIOXIDE 19.3 mmol/L (21-32)
[2019-09-05 10:04] LABS: BILIRUBIN TOTAL 0.2 mg/dL (0.20-1.00)
[2019-09-05 10:07] LABS: ALBUMIN 2.7 g/dL (3.4-5.0)
[2019-09-05 15:07] LABS: microscopic required? YES; urine erythrocyte TRACE (NEGATIVE)
[2019-09-05 15:08] LABS: CHOLESTEROL/HDL RATIO 2.3
[2019-09-05 15:29] VITALS: BP 156/84
[2019-09-05 15:40] LABS: AMPHETAMINE QUAL UR NONE DETECTED (See below)
[2019-09-05 20:44] VITALS: BP 136/64
[2019-09-05] MEDS ORDERED: NEU300 PO (22:05)
[2019-09-06 05:41] VITALS: BP 148/71
[2019-09-06 06:22] LABS: CALCIUM 7.2 mg/dL (8.5-10.1); CARBON DIOXIDE 18.9 mmol/L (21-32); CREATININE SERUM 1.7 mg/dL (0.6-1.0); PHOSPHOROUS 4.4 mg/dL (2.5-4.9); POTASSIUM SERUM 3.6 mmol/L (3.5-5.1)
[2019-09-06 06:30] LABS: BASOPHIL % 0.5 % (0-2); PLATELET COUNT 200 x10^3mcL (130-400)
[2019-09-06 06:38] LABS: RED CELL DISTRIBUTION WIDTH 14.7 % (11.5-14.5)
[2019-09-06 09:25] VITALS: BP 125/74
[2019-09-06 13:56] VITALS: BP 104/67
[2019-09-06 14:06] VITALS: BP 104/67
== END 2019-09-06 15:42 | disposition home or self-care (01) | DRG 917 ==
LOC: ED 08:35 → MU 14:26
PROVIDERS: Emergency Medicine; ADMIT Internal Medicine
DX: T38.3X1A Poisoning by insulin and oral hypoglycemic [antidiabetic] drugs, accidental (unintentional), initial encounter (principal); E43 Unspecified severe protein-calorie malnutrition; I12.9 Hypertensive chronic kidney disease with stage 1 through stage 4 chronic kidney disease, or unspecified chronic kidney disease; N18.9 Chronic kidney disease, unspecified; D63.1 Anemia in chronic kidney disease; E11.22 Type 2 diabetes mellitus with diabetic chronic kidney disease; E11.65 Type 2 diabetes mellitus with hyperglycemia; E78.5 Hyperlipidemia, unspecified; E87.8 Other disorders of electrolyte and fluid balance, not elsewhere classified; F32.9 Major depressive disorder, single episode, unspecified; Z79.4 Long term (current) use of insulin; Z79.84 Long term (current) use of oral hypoglycemic drugs; Z95.0 Presence of cardiac pacemaker; Z68.20 Body mass index [BMI] 20.0-20.9, adult; Z87.891 Personal history of nicotine dependence; Z86.73 Personal history of transient ischemic attack (TIA), and cerebral infarction without residual deficits; Y92.018 Other place in single-family (private) house as the place of occurrence of the external cause
CPT/HCPCS: 82962; G0378; Q0092

== ENCOUNTER 2019-11-04 20:45 | Inpatient (IN) | payer OTHER, MEDICAID ==
[~2019-11-04] VITALS: Ht 167.6 cm; Wt 62.1 kg
[2019-11-04 20:50] VITALS: Ht 167.6 cm; Wt 62.1 kg
[2019-11-04 22:01] LABS: BASOPHIL % 0.6 % (0-2); PLATELET COUNT 168 x10^3mcL (130-400); RED CELL DISTRIBUTION WIDTH 13.8 % (11.5-14.5)
[2019-11-04 22:20] LABS: BILIRUBIN TOTAL 0.2 mg/dL (0.20-1.00); CALCIUM 8.9 mg/dL (8.5-10.1); CARBON DIOXIDE 24.1 mmol/L (21-32); MAGNESIUM 1.8 mg/dL (1.8-2.4); POTASSIUM SERUM 5.5 mmol/L (3.5-5.1); TOTAL PROTEIN, SERUM 7.6 g/dL (6.4-8.2)
[2019-11-04 22:24] LABS: ALBUMIN 3.2 g/dL (3.4-5.0)
[2019-11-05] MEDS ORDERED: CALCIUM 500 + D1 TA2 PO (00:01)
[2019-11-05 01:09] LABS: CHOLESTEROL/HDL RATIO 2.3
[2019-11-05 01:15] LABS: FREE T4 0.88 ng/dL (0.76-1.46); FREE THYROXINE INDEX 2.6 ug/dL (1.4-4.5); T4(THYROXINE) 7.1 ug/dL (4.7-13.3)
[2019-11-05 01:26] LABS: UA SPECIFIC GRAVITY 1.015 (1.005-1.035); microscopic required? YES; urine erythrocyte TRACE (NEGATIVE)
[2019-11-05 01:42] LABS: AMPHETAMINE QUAL UR NONE DETECTED (See below)
[2019-11-05 02:04] VITALS: BP 156/83
[2019-11-05 02:33] LABS: T3 TOTAL 1.06 ng/mL
[2019-11-05 06:40] VITALS: BP 114/75
[2019-11-05 07:17] VITALS: BP 137/79
[2019-11-05 08:33] LABS: BASOPHIL % 0.5 % (0-2); PLATELET COUNT 143 x10^3mcL (130-400); RED CELL DISTRIBUTION WIDTH 13.5 % (11.5-14.5)
[2019-11-05 09:00] LABS: CALCIUM 8.7 mg/dL (8.5-10.1); CARBON DIOXIDE 21.1 mmol/L (21-32); CREATININE SERUM 1.6 mg/dL (0.6-1.0); POTASSIUM SERUM 4.6 mmol/L (3.5-5.1)
[2019-11-05 14:10] VITALS: BP 128/71
[2019-11-05 17:17] VITALS: BP 123/58
[2019-11-05 20:00] VITALS: BP 143/73
[2019-11-06 04:23] VITALS: BP 129/75
[2019-11-06 06:56] LABS: BASOPHIL % 0.5 % (0-2); PLATELET COUNT 147 x10^3mcL (130-400); RED CELL DISTRIBUTION WIDTH 13.7 % (11.5-14.5)
[2019-11-06 07:16] LABS: CALCIUM 8.4 mg/dL (8.5-10.1); CARBON DIOXIDE 19.1 mmol/L (21-32); CREATININE SERUM 1.6 mg/dL (0.6-1.0); POTASSIUM SERUM 4.8 mmol/L (3.5-5.1)
[2019-11-06 07:51] VITALS: BP 139/87
[2019-11-06] MEDS ORDERED: NOVAPLUS LIDOCAINE5% TOP (10:54)
[2019-11-06] MEDS ORDERED: AUGMENTIN 875-1 EACH PO (10:54)
[2019-11-06 11:31] VITALS: BP 166/90
[2019-11-06 12:39] VITALS: BP 166/90
[2019-11-06 15:48] VITALS: BP 140/88
== END 2019-11-06 16:30 | disposition home or self-care (01) | DRG 193 ==
LOC: ED 20:45 → DU 11-05 00:12 → MU 11-05 00:12 → DU 11-05 01:38 → MU 11-05 17:21
PROVIDERS: Emergency Medicine; ADMIT Family Medicine
DX: J18.9 Pneumonia, unspecified organism (principal); N17.0 Acute kidney failure with tubular necrosis; E43 Unspecified severe protein-calorie malnutrition; N39.0 Urinary tract infection, site not specified; I13.0 Hypertensive heart and chronic kidney disease with heart failure and stage 1 through stage 4 chronic kidney disease, or unspecified chronic kidney disease; B96.20 Unspecified Escherichia coli [E. coli] as the cause of diseases classified elsewhere; I50.9 Heart failure, unspecified; E11.65 Type 2 diabetes mellitus with hyperglycemia; E11.22 Type 2 diabetes mellitus with diabetic chronic kidney disease; N18.9 Chronic kidney disease, unspecified; E11.42 Type 2 diabetes mellitus with diabetic polyneuropathy; E11.649 Type 2 diabetes mellitus with hypoglycemia without coma; E83.39 Other disorders of phosphorus metabolism; K21.9 Gastro-esophageal reflux disease without esophagitis; G56.00 Carpal tunnel syndrome, unspecified upper limb; D63.1 Anemia in chronic kidney disease; F32.9 Major depressive disorder, single episode, unspecified; E78.5 Hyperlipidemia, unspecified; E87.5 Hyperkalemia; E83.42 Hypomagnesemia; Z79.84 Long term (current) use of oral hypoglycemic drugs; Z86.73 Personal history of transient ischemic attack (TIA), and cerebral infarction without residual deficits; Z95.0 Presence of cardiac pacemaker; Z98.42 Cataract extraction status, left eye; Z98.41 Cataract extraction status, right eye; Z90.710 Acquired absence of both cervix and uterus; Z87.891 Personal history of nicotine dependence; Z90.49 Acquired absence of other specified parts of digestive tract; Z90.6 Acquired absence of other parts of urinary tract
CPT/HCPCS: 82962; 83880; 84439; 97112-GP; G0378; J0456; J0696; J1815; J1885; J7030; J7050; J7060

== ENCOUNTER 2020-04-06 17:50 | Emergency (ER) | payer OTHER, MEDICAID ==
[~2020-04-06] VITALS: Ht 167.6 cm; Wt 67.1 kg
[~2020-04-06 17:50] MED LIST changes: +AUGMENTIN 875-1 EACH PO; +CALCIUM 500 + D1 TA2 PO; +NOVAPLUS LIDOCAINE5% TOP
[2020-04-06 17:56] VITALS: Ht 167.6 cm; Wt 67.1 kg
[2020-04-06 19:19] LABS: BASOPHIL % 0.4 % (0-2); PLATELET COUNT 172 x10^3mcL (130-400); RED CELL DISTRIBUTION WIDTH 13.7 % (11.5-14.5)
[2020-04-06 19:22] LABS: CALCIUM 8.7 mg/dL (8.5-10.1); CARBON DIOXIDE 19.5 mmol/L (21-32); CREATININE SERUM 2.2 mg/dL (0.6-1.0); POTASSIUM SERUM 4.7 mmol/L (3.5-5.1)
[2020-04-06 19:27] LABS: BILIRUBIN TOTAL 0.2 mg/dL (0.20-1.00)
[2020-04-06 19:28] LABS: ALBUMIN 3.2 g/dL (3.4-5.0)
[2020-04-06 20:27] VITALS: BP 144/79
== END 2020-04-06 20:27 | disposition home or self-care (01) ==
LOC: ED 17:50
PROVIDERS: Emergency Medicine
DX: R00.2 Palpitations (principal); I50.9 Heart failure, unspecified; I11.0 Hypertensive heart disease with heart failure; E11.9 Type 2 diabetes mellitus without complications; Z86.73 Personal history of transient ischemic attack (TIA), and cerebral infarction without residual deficits; Z95.0 Presence of cardiac pacemaker
CPT/HCPCS: Q0092

== ENCOUNTER 2020-04-16 11:11 | Emergency (ER) | payer OTHER, MEDICAID ==
[~2020-04-16] VITALS: Ht 170.2 cm; Wt 63.5 kg
[2020-04-16 11:36] VITALS: Ht 170.2 cm; Wt 63.5 kg
[2020-04-16 13:45] VITALS: BP 123/92
== END 2020-04-16 13:45 | disposition home or self-care (01) ==
LOC: ED 11:11
DX: I80.8 Phlebitis and thrombophlebitis of other sites (principal); I10 Essential (primary) hypertension; E11.9 Type 2 diabetes mellitus without complications; Z86.73 Personal history of transient ischemic attack (TIA), and cerebral infarction without residual deficits; Z95.0 Presence of cardiac pacemaker; Z98.890 Other specified postprocedural states
CPT/HCPCS: Q0092